=== PATIENT | female | born 2000 | race Caucasian/White ===

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

== ENCOUNTER 2022-04-16 11:42 | Emergency (ER) | payer OTHER, SELFPAY ==
[2022-04-16 11:47] VITALS: BP 119/78; PULSE 88; RESP 16; TEMP 36.5; O2SAT 96
[2022-04-16 12:06] LABS: Bilirubin Negative (Negative); Blood Trace-intact (Negative); Clarity Clear (Clear); Glucose Negative (Negative); Ketones Negative (Negative); Leukocyte Esterase Negative (Negative); Nitrite Negative (Negative); Specific Gravity >= 1.030 (1.005-1.025); Urobilinogen 0.2 EU/dL (Up TO 0.2)
[2022-04-16 12:11] LABS: Bacteria Few HPF (Negative); C & S Indicated? No/Sq. Contamination; Casts Negative LPF (Negative); Crystals Negative HPF (Negative); Epithelial Cells Many HPF (Negative); Mucus Moderate (Negative); WBC 0-2 HPF (0-5)
--- NOTE | 2022-04-16 12:11 | W.ED.GENAD ---
Discharge Plan Disposition Patient Disposition: HOME Condition: Stable Discharge Details Clinical Impression: Vaginal yeast infection, Bacterial vaginosis Primary Care Provider: Lucinda Parikh ED Provider: Pretty Preston Home Meds and New Rx's Prescriptions: New fluconazole [Diflucan] 150 mg tablet 150 mg PO ONCE Qty: 1 0RF Rx Instructions: as a single dose metronidazole 500 mg tablet 500 mg PO BID 7 Days Qty: 14 0RF Continued Nexplanon 68 mg Implant SUBDERMAL Discharge Instructions Instructions: Yeast Infection (ED) Additional Instructions: It is suspected that you have a yeast infection. You were given 1 dose of Diflucan which is the recommended treatment for a vaginal yeast infection. You were given a prescription for 1 additional dose of Diflucan to take in 1 week if your symptoms have not improved. Your vaginal pathogen screen is pending. You will be notified if it is confirmed you have a yeast infection or if it is positive for a bacterial vaginosis infection. You were given a prescription for metronidazole to take if you are notified that you are also positive for a bacterial vaginosis infection. Your chlamydia and gonorrhea test is pending and you will be notified of any positive results when available. Follow-up with [facility] for reevaluation in the next 1 to 2 weeks. Return immediately to the emergency department if you develop any worsening or new concerning symptoms. Referrals: [facility] [Provider Group] Discharge Data Discharge Date/Time-TO BE ENTERED AT DEPARTURE: 04/16/22 12:58 Discharge Physician: Pretty Preston Medical Decision Making 1200 -- 21-year-old female with history of ovarian cystectomy presents with vaginal itching and swelling with clear and white vaginal discharge for the past few days. She denies fever, vomiting or urinary symptoms. External exam revealed mild edema and erythema of labia majora. Internal vaginal exam noted white and clear discharge. Internal speculum exam noted cervix appears normal to inspection without friability, green or yellow vaginal discharge. No cervical motion tenderness or adnexal mass or tenderness. Vaginal pathogen screen and GC chlamydia RNA ordered. Patient states she would rather go home. We will treat for suspected vaginal candidiasis. She was given 1 dose of Diflucan here in addition to another dose if needed in 1 week if symptoms have not improved. She was also given a prescription for Flagyl if vaginal pathogen screen positive for bacterial vaginosis. Do not see indication for prophylactic treatment for chlamydia and gonorrhea as presentation does not appear consistent with urethritis or cervicitis or PID. She was advised to follow-up with women's wellness for reevaluation. Usual and customary return precautions given prior to discharge. 1500 -- Patient called after discharge and informed that vaginal pathogen screen positive for yeast infection and bacterial vaginosis. She is advised to fill the Flagyl prescription and take this as directed until finished. Medical Records Medical records reviewed: Yes I reviewed the patient's medical records. Lab Data Lab results reviewed: Yes I reviewed the patient's lab results. Labs: 04/16/22 12:35 Vaginal Vaginitis Screen - Final Positive -- Jenifer Positive -- Gardnerella Negative -- Trichomonas Laboratory Tests Range/Units 04/16/22 11:58 Urine Color (Yellow) Yellow Urine Clarity (Clear) Clear Urine pH (5-8) 6.0 Ur Specific [place] (1.005-1.025) >= 1.030 H Urine Protein (Negative) mg/dL Trace H Urine Ketones (Negative) mg/dL Negative Urine Blood (Negative) Trace-intact H Urine Nitrite (Negative) Negative Urine Bilirubin (Negative) Negative Urine Urobilinogen (Up TO 0.2) EU/dL 0.2 Ur Leukocyte Esterase (Negative) Negative Urine RBC (0-2) HPF 5-10 H Urine WBC (0-5) HPF 0-2 Ur Epithelial Cells (Negative) HPF Many Urine Crystals (Negative) HPF Negative Urine Bacteria (Negative) HPF Few Urine Casts (Negative) LPF Negative Urine Mucus (Negative) Moderate Ur Culture Indicated? No/Sq. Contamination Urine Glucose (Negative) mg/dL Negative HPI General Mode of arrival: ambulatory. Date/Time Provider Initiated Documentation: 04/16/22 11:53. Limitations to Documentation: no limitations. Information obtained by: patient. HPI Narrative: Pt is a 21yo F with a history of ovarian cystectomy presents with external vaginal itching, swelling and clear and white vaginal discharge for the past few days. Patient states she is sexually active and does not use protection but denies any known exposure to STDs. She denies any fever, nausea, vomiting, abdominal pain, green or yellow vaginal discharge, genital lesions or urinary symptoms. She does admit to recent change in her body wash. Related Data Home Medications Medication Instructions Recorded Confirmed etonogestrel 68 mg subdermal subdermal 04/16/22 implant (Nexplanon) fluconazole 150 mg tablet 150 mg PO ONCE #1 tab 04/16/22 (Diflucan) metronidazole 500 mg tablet 500 mg PO BID 7 days #14 tabs 04/16/22 Previous Rx's Medication Instructions Recorded fluconazole 150 mg tablet 150 mg PO ONCE #1 tab 04/16/22 (Diflucan) metronidazole 500 mg tablet 500 mg PO BID 7 days #14 tabs 04/16/22 Allergies Allergy/AdvReac Type Severity Reaction Status Date / Time No Known Allergies Allergy Unverified 04/16/22 11:51 General Stated Complaint: CREATIVE INTERN KAREN: 4 Review of Systems All systems reviewed & are unremarkable except as noted in HPI and below Constitutional Constitutional: Reports as per HPI, Denies chills and Denies fever(s) Eyes Eyes: Denies blurry vision ENT Ears, Nose, Mouth, and Throat: Denies dizziness, Denies sore throat and Denies throat swelling Cardiovascular Cardiovascular: Denies chest pain and Denies dyspnea Respiratory Respiratory: Denies cough and Denies dyspnea Gastrointestinal Gastrointestinal: Denies abdominal pain, Denies diarrhea and Denies vomiting Genitourinary Genitourinary: Denies hematuria, Denies dysuria, Reports vaginal odor and Reports vaginal pruritus Musculoskeletal Musculoskeletal: Denies back pain and Denies numbness Integumentary/Breasts Skin/Breast: Denies lesions and Denies rash Neurologic Neurologic: Denies dizziness, Denies localized weakness and Denies numbness Allergic/Immunologic Allergic/Immunologic: Denies throat swelling PFSH All Active Problems (Updated 04/18/22 @ 08:45 by Pretty Preston DO) Menstrual cramps (Acute) Strep pharyngitis (Acute) Diarrhea (Acute) Pelvic pain (Acute) Ovarian cyst (Acute) Vaginal yeast infection (Acute) Bacterial vaginosis (Acute) H/O ovarian cystectomy (Acute) 06/12/19. L hemorrhagic ovarian cyst. Laparoscopic ovarian cystectomy Hemorrhagic cyst of left ovary (Acute ~05/2019) 6.8cm. 06/12/19 L ovarian cystectomy. Pt will begin Xulane patch for ovarian suppression. 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 Sexually active: No (I asked pt this in presence of mother) Do you feel safe at home: Yes Do you feel safe in your relationship?: Yes Female Reproductive History Menstrual control method: none Exam Const General: cooperative, healthy appearing and no acute distress Orientation: alert, awake and oriented x3 HENMT Head: normal to inspection Mouth: oral mucosae normal Eyes General: appearance normal, both eyes and all related structures Neck Neck: normal visual inspection Resp Effort & Inspection: normal respiratory effort and able to speak in complete sentences Cardio Rate: regular rate Skin General skin exam: no rashes or lesions noted Neuro General: patient alert, patient awake and patient oriented x3 Motor: muscle tone normal throughout Extrem General: normal to inspection and full ROM Psych Appearance: grossly normal Affect: normal affect Course Vital Signs Vital signs: Vital Signs Temperature 97.7 F 04/16/22 11:47 Pulse 88 04/16/22 11:47 Respiratory Rate 16 04/16/22 11:47 Blood Pressure 119/78 04/16/22 11:47 Pulse Oximetry 96 04/16/22 11:47 Temperature 97.7 F 04/16/22 11:47 Temperature Source Temporal Artery Scan 04/16/22 11:47 Pulse 88 04/16/22 11:47 Respiratory Rate 16 04/16/22 11:47 Respiratory Effort 04/16/22 11:47 Blood Pressure 119/78 04/16/22 11:47 Blood Pressure Position Sitting 04/16/22 11:47 Pulse Oximetry 96 04/16/22 11:47 Oxygen Delivery Method Room Air 04/16/22 11:47 Oxygen Flow Rate 0 04/16/22 11:47 Pain Level 5 04/16/22 11:59 Lab/Test Results Lab/Test Results: Laboratory Tests Range/Units 04/16/22 11:58 Urine Color (Yellow) Yellow Urine Clarity (Clear) Clear Urine pH (5-8) 6.0 Ur Specific [place] (1.005-1.025) >= 1.030 H Urine Protein (Negative) mg/dL Trace H Urine Ketones (Negative) mg/dL Negative Urine Blood (Negative) Trace-intact H Urine Nitrite (Negative) Negative Urine Bilirubin (Negative) Negative Urine Urobilinogen (Up TO 0.2) EU/dL 0.2 Ur Leukocyte Esterase (Negative) Negative Urine Glucose (Negative) mg/dL Negative POC- Test(urine) Negative PAWSS Have you Been Recently Intoxicated or Drunk Within the Last 30 days?: Yes Have you Ever Experienced Previous Episodes of Alcohol Withdrawal?: No Have you ever Experienced Withdrawal Seizures?: No Have you ever Experienced Delirium Tremens(DT)s?: No Have you ever undergone Alcohol Rehabilitation Treatment (i.e, inpt ot outpatient treatment programs)?: No Have you ever Experienced Blackouts?: No Have you ever Combined Alcohol with other Downers within the last 90 days?: No Have you ever Combined Alcohol with any other Substance of Abuse during the last 90 days?: No Positive Blood Alcohol level on Presentation? [PCS.BAL]: No Evidence of Increased Autonomic Activity (i.e. HR>120, tremor, sweating, agitation, nausea)?: No Result: 1
[2022-04-16] MEDS: Fluconazole 150 MG TAB PO (12:59)
[2022-04-18 15:50] LABS: Chlamydia Result Negative (Negative); GC Result Negative (Negative)
== END 2022-04-16 12:58 | disposition home or self-care (01) ==
PROVIDERS: Emergency Provider Physician Assistant; PCP Obstetrics & Gynecology Gynecology
DX: B37.3 Candidiasis of vulva and vagina (principal); N76.0 Acute vaginitis
CPT/HCPCS: 81025; 87491; 87591; 99283; 81003; 81015; 87480; 87510; 87660

== ENCOUNTER 2023-05-09 19:49 | Outpatient (REF) | payer BC, SELFPAY ==
[2023-05-11 13:44] LABS: Chlamydia Result Negative (Negative); GC Result Negative (Negative)
== END 2023-05-09 19:50 | disposition home or self-care (01) ==
LOC: LBN 19:49
PROVIDERS: PCP Obstetrics & Gynecology Gynecology; Visit Provider Physician Assistant Medical
DX: N89.8 Other specified noninflammatory disorders of vagina (principal)
CPT/HCPCS: 87491; 87591; 87480; 87510; 87660

== ENCOUNTER 2023-08-01 16:50 | Emergency (ER) | payer BC, SELFPAY ==
[2023-08-01 16:53] VITALS: BP 152/76; PULSE 88; RESP 20; TEMP 37; O2SAT 99
--- NOTE | 2023-08-01 17:06 | W.ED.GENAD ---
Discharge Plan Disposition Patient Disposition: Home Discharge Details Clinical Impression: Pelvic pain Primary Care Provider: Lucinda Parikh ED Provider: Jeffry Sparks Home Meds and New Rx's Prescriptions: New naproxen [Naprosyn] 500 mg tablet 500 mg PO BID PRN (Reason: pain) Qty: 30 0RF No Action Nexplanon 68 mg Implant SUBDERMAL Patient Comments: patient no longer taking fluconazole [Diflucan] 150 mg tablet 150 mg PO ONCE Qty: 1 0RF Patient Comments: patient does not take Rx Instructions: as a single dose Discharge Instructions Additional Instructions: Take pain medication as prescribed and needed. Please follow-up with women's wellness for reevaluation of your symptoms. Please make sure you are getting routine wellness exams. Please use condoms with every sexual encounter. Medical Decision Making Emergent evaluation of abdominal pain. Patient has a benign exam and normal vital signs. Have a low suspicion for an acute intra-abdominal process or infectious etiology. Will check for urine infection. 1515: Patient is not Urinalysis unremarkable for infection. Will treat with Naprosyn. Advised close follow-up with women's health for routine evaluation. Return precautions advised. Discharged in good condition. HPI General Date/Time Provider Initiated Documentation: 08/01/23 16:58. Limitations to Documentation: no limitations. Information obtained by: patient. HPI Narrative: 23-year-old female with past medical history of ovarian cyst presents for evaluation of lower abdominal pain. Pain started this morning. It was severe, improved but has returned and has been progressively worsening. Pain is localized to the lower abdomen. No exacerbating relieving symptoms. Not associated with fever, she has been having mild nausea, no vomiting, no diarrhea. She denies any vaginal bleeding. She does report reports some discomfort after urination. She is not sure if she may be . She is sexually active with multiple partners, she does not use control and is not consistent with barrier contraceptives. Related Data Home Medications Medication Instructions Recorded Confirmed etonogestrel 68 mg subdermal subdermal 04/16/22 implant (Nexplanon) fluconazole 150 mg tablet 150 mg PO ONCE #1 tab 04/16/22 (Diflucan) naproxen 500 mg tablet (Naprosyn) 500 mg PO BID PRN pain #30 tabs 08/01/23 Previous Rx's Medication Instructions Recorded fluconazole 150 mg tablet 150 mg PO ONCE #1 tab 04/16/22 (Diflucan) naproxen 500 mg tablet (Naprosyn) 500 mg PO BID PRN pain #30 tabs 08/01/23 Allergies Allergy/AdvReac Type Severity Reaction Status Date / Time No Known Allergies Allergy Unverified 08/01/23 16:57 General Stated Complaint: Abd Prob KAREN: 3 PFSH All Active Problems (Updated 08/01/23 @ 18:07 by Jeffry Sparks MD) Menstrual cramps (Acute) Strep pharyngitis (Acute) Diarrhea (Acute) Pelvic pain (Acute) Ovarian cyst (Acute) H/O ovarian cystectomy (Acute) 06/12/19. L hemorrhagic ovarian cyst. Laparoscopic ovarian cystectomy Hemorrhagic cyst of left ovary (Acute ~05/2019) 6.8cm. 06/12/19 L ovarian cystectomy. Pt will begin Xulane patch for ovarian suppression. LLQ pain (Acute) Medical History (Updated 08/01/23 @ 18:07 by Jeffry Sparks MD) No significant past medical history Surgical History No significant past surgical history Social History Smoking/Tobacco Use Status: Never Smoking risk assessment performed?: Yes Alcohol Intake: never Drug use: Rarely Substance use type: marijuana Communication Needs: None Education Level: high school Details: entering [employer]lette yr at [employer]. 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 Sexually active: No (I asked pt this in presence of mother) Do you feel safe at home: Yes Do you feel safe in your relationship?: Yes Female Reproductive History Menstrual control method: none Exam Narrative Exam Narrative: Review of Systems: All systems reviewed & are unremarkable except as noted in HPI and below Exam: Const: Well-nourished, Well-developed, appearing stated age HEENT: NACT / Eyes: PERRL, no conjunctival injection, and symmetrical lids / EARS Atraumatic external nose and ears / MOUTH Moist MM / NECK: Symmetric, trachea midline, No thyromegaly / THROAT oropharynx clear CVS: RRR, No murmurs or gallops. Peripheral pulses 2+ and equal in all extremities. Brisk capillary refill in all extremities. RESP: Unlabored respiratory effort, Clear to auscultation bilaterally. No wheezes rales or rhonchi GI: Soft, Nontender/Nondistended, No hepatosplenomegaly. No guarding or rebound. MSK: Extremities w/o deformity or TTP, No cyanosis or clubbing, full range of motion Skin: Warm, Dry. No rashes or lesions. 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 Sensation grossly intact, no focal neurologic deficits. Psych: (AAO) x3. Appropriate mood and affect Course Vital Signs Vital signs: Vital Signs Temperature 37.0 C 08/01/23 16:53 Pulse 88 08/01/23 16:53 Respiratory Rate 20 08/01/23 16:53 Blood Pressure 152/76 H 08/01/23 16:53 Pulse Oximetry 99 08/01/23 16:53 Temperature 37.0 C 08/01/23 16:53 Pulse 88 08/01/23 16:53 Respiratory Rate 20 08/01/23 16:53 Respiratory Effort Normal 08/01/23 16:59 Blood Pressure 152/76 H 08/01/23 16:53 Blood Pressure Position Sitting 08/01/23 16:53 Pulse Oximetry 99 08/01/23 16:53 Oxygen Delivery Method Room Air 08/01/23 16:53 Oxygen Flow Rate 0 08/01/23 16:53 Pain Level 9 08/01/23 16:53 PAWSS Have you Been Recently Intoxicated or Drunk Within the Last 30 days?: No Have you Ever Experienced Previous Episodes of Alcohol Withdrawal?: No Have you ever Experienced Withdrawal Seizures?: No Have you ever Experienced Delirium Tremens(DT)s?: No Have you ever undergone Alcohol Rehabilitation Treatment (i.e, inpt ot outpatient treatment programs)?: No Have you ever Experienced Blackouts?: No Have you ever Combined Alcohol with other Downers within the last 90 days?: No Have you ever Combined Alcohol with any other Substance of Abuse during the last 90 days?: No Positive Blood Alcohol level on Presentation? [PCS.BAL]: No Evidence of Increased Autonomic Activity (i.e. HR>120, tremor, sweating, agitation, nausea)?: No Result: 0
[2023-08-01 17:23] LABS: Bilirubin Negative (Negative); Blood Trace-intact (Negative); Clarity Clear (Clear); Glucose Negative (Negative); Ketones Negative (Negative); Leukocyte Esterase Negative (Negative); Nitrite Negative (Negative); Specific Gravity 1.025 (1.005-1.025); Urobilinogen 0.2 mg/dL (Up to 0.2)
[2023-08-01 17:42] LABS: Bacteria Few HPF (Negative); C & S Indicated? Yes; Crystals Negative HPF (Negative); Epithelial Cells Rare HPF (Negative); Mucus Negative (Negative); RBC 0-2 HPF (0-2); WBC 0-2 HPF (0-5)
[2023-08-01 18:17] VITALS: BP 119/74; PULSE 71; RESP 15; O2SAT 98
== END 2023-08-01 18:18 | disposition home or self-care (01) ==
PROVIDERS: Emergency Provider Emergency Medicine; PCP Obstetrics & Gynecology Gynecology
DX: R10.2 Pelvic and perineal pain (principal)
CPT/HCPCS: 99283; 81003; 81015; 87086; 99284

== ENCOUNTER 2023-10-15 08:44 | Emergency (ER) | payer BC, SELFPAY ==
[2023-10-15 08:46] VITALS: BP 133/84; PULSE 78; RESP 16; TEMP 36.4; O2SAT 99
[2023-10-15 10:27] LABS: Bilirubin Negative (Negative); Blood Trace-intact (Negative); Clarity Clear (Clear); Glucose Negative (Negative); Ketones Negative (Negative); Leukocyte Esterase Negative (Negative); Nitrite Negative (Negative); Specific Gravity 1.025 (1.005-1.025); Urobilinogen 0.2 mg/dL (Up to 0.2); pH 6.5 (5-8)
[2023-10-15 10:37] LABS: Bacteria Negative HPF (Negative); C & S Indicated? No; Casts Negative LPF (Negative); Crystals Negative HPF (Negative); Epithelial Cells Many HPF (Negative); Mucus Negative (Negative)
[2023-10-15 10:51] LABS: Abs Immature Grans 0.02 10^3/uL (0.0-0.06); Absolute Basophil Count 0.02 10^3/uL (0.0-0.2); Absolute Eosinophil Count 0.11 10^3/uL (0.0-0.7); Absolute Lymphocyte Count 2.24 10^3/uL (1.2-3.4); Absolute Monocyte Count 0.61 10^3/uL (0.1-0.8); Absolute Neutrophil Count 6.52 10^3/uL (1.2-6.7); Basophils % 0.2; Eosinophils % 1.2; HCT 40.6 % (36.0-46.0); HGB 14.2 g/dL (11.2-15.7); Immature Grans % 0.2; Lymphocytes % 23.5; MCH 30.7 pg (27.0-33.0); MCV 88 fL (80-95); MPV 9.3 fL (8.0-11.0); Monocytes % 6.4; Neutrophils % 68.5; Platelet Count 286 10^3/uL (130-400); RBC 4.62 10^6/uL (3.93-5.22); RDW-SD 38.5 fL; WBC 9.52 10^3/uL (4.4-10.8)
[2023-10-15 11:05] LABS: ALT 20 U/L (14-59); AST 13 U/L (15-37); Albumin 4.2 g/dL (3.4-5.0); Alkaline Phosphatase 50 U/L (46-116); Anion Gap 8.5 mmol/L (3-11); BUN 11 mg/dL (7-18); Bilirubin, Total 0.5 mg/dL (0.2-1.0); CO2 28.5 mmol/L (21.0-32.0); CREATININE 0.8 mg/dL (0.55-1.02); Calcium 9.4 mg/dL (8.5-10.1); Chloride 102 mmol/L (98-107); Estimated GFR 107.44 (mL/min/1.73m2); Glucose 100 mg/dL (74-106); Lipase 20 U/L (16-77); Magnesium 1.7 mg/dL (1.8-2.4); Potassium 4.2 mmol/L (3.5-5.1); Sodium 139 mmol/L (136-145); Total Protein 8.1 g/dL (6.4-8.2)
[2023-10-15] MEDS: Normal Saline 1,000 ML 1000 ML IV (11:10)
[2023-10-15 11:40] VITALS: BP 126/62; PULSE 78; RESP 16; O2SAT 99
--- NOTE | 2023-10-15 11:40 | ED.GENADUL_ITS ---
Discharge Plan Disposition Patient Disposition: Home Discharge Details Clinical Impression: Pelvic pain Primary Care Provider: Lucinda Parikh ED Provider: Kadeem Hayes Home Meds and New Rx's Prescriptions: Continued naproxen [Naprosyn] 500 mg tablet 500 mg PO BID PRN (Reason: pain) Qty: 30 0RF Discharge Instructions Instructions: Pelvic Pain (ED) Additional Instructions: If you have any new or significant worsening of symptoms or change in your condition return immediately to the emergency department for reassessment. Otherwise you may continue to take [id number] ibuprofen or your prescribed naproxen. Stay well-hydrated. Please follow-up with Dr. Parikh/[facility] if not improving. Referrals: Lucinda Parikh MD [Primary Care Provider] - (As needed for reassessment if not improving) Medical Decision Making Patient presenting to the emergency department for chief complaint of lower abdominal pain. Patient states that on Sunday she was generally not feeling well then yesterday morning she started having some lower pelvic discomfort. 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 Patient has significant past medical history of ovarian cyst and lower abdominal pain. She states that her last menstrual period was last week but has had a slight amount of spotting. Patient reports significant abdominal cramping at 3 AM this morning but actually by the time they have gotten here pain has been improving. Patient deferred vaginal exam but abdominal exam does show some very mild suprapubic tenderness to deep palpation only but no guarding, no rigidity, no CVA tenderness, exam otherwise noncontributory. Plan on checking labs including test will give fluids pending results but given symptoms not resolving we will hold off on any further medications Review of labs show a completely normal CBC, CMP only shows slightly low AST and magnesium otherwise all other findings within normal limits, normal lipase, urine shows trace intact blood but is negative for any signs of infection and patient is not . Reassessed patient and she states continued furthering improvement of symptoms. Shared decision-making was utilized to discuss with both patient and mother advanced imaging versus watchful waiting. Given patient's known history of ovarian cysts, resolving symptoms, and very reassuring labs we decided after discussion to hold off on any advanced imaging and for patient to continue use of oxwn-sll-wazeeba medications as needed for return of discomfort and to come back to the emergency department if her condition change or worsen. Patient recommended to follow-up with [facility] that she has seen for similar complaints in the past. After discussion of diagnosis and plan of care patient has no further needs, questions, or concerns and states clear understanding to return to the emergency department for any worsening symptoms. This documentation was generated using [employer] dictation system, please disregard any oddities of phrase or misspellings. Lab Data Lab results reviewed: Yes I reviewed the patient's lab results. HPI General Mode of arrival: ambulatory . Date/Time Provider Initiated Documentation: 10/15/23 10:05 . Limitations to Documentation: no limitations . Information obtained by: patient and RN notes reviewed . History of Present Illness 23 year old F presents to the emergency department with the chief complaint of Pelvic discomfort, described as moderate and similar to prior episodes, and is localized to the abdomen. Patient started experiencing this day(s) (1) and it has been intermittent and now resolved. No relieving factors improve symptom(s), Patient did receive the following treatments prior to arrival, none Related Data Home Medications Medication Instructions Recorded Confirmed naproxen 500 mg tablet (Naprosyn) 500 mg PO BID PRN pain #30 tabs 08/01/2310/15 Previous Rx's Medication Instructions Recorded naproxen 500 mg tablet (Naprosyn) 500 mg PO BID PRN pain #30 tabs 08/01/23 Allergies Allergy/AdvReac Type Severity Reaction Status Date / Time No Known Allergies Allergy Unverified 08/01/23 16:57 General Stated Complaint: Abd Prob KAREN: 4 Review of Systems Constitutional Constitutional: Denies chills, Denies fever(s) and Reports poor appetite Cardiovascular Cardiovascular: Denies chest pain and Denies dyspnea Respiratory Respiratory: Denies cough and Denies dyspnea Gastrointestinal Gastrointestinal: Reports as per HPI, Reports abdominal pain, Denies melena, Denies change in bowel habits, Denies constipation, Denies diarrhea, Reports loose stools, Denies nausea and Denies vomiting Genitourinary Genitourinary: Reports metrorrhagia, Denies hematuria, Reports pelvic pain, Denies urinary incontinence, Denies urinary hesitancy and Denies urinary urgency Integumentary/Breasts Skin/Breast: Denies rash PFSH All Active Problems Ovarian cyst (Acute) Pelvic pain (Acute) Diarrhea (Acute) Strep pharyngitis (Acute) Menstrual cramps (Acute) H/O ovarian cystectomy (Acute) 06/12/19. L hemorrhagic ovarian cyst. Laparoscopic ovarian cystectomy Hemorrhagic cyst of left ovary (Acute ~05/2019) 6.8cm. 06/12/19 L ovarian cystectomy. Pt will begin Xulane patch for ovarian suppression. 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 current occupation: works at [employer] Sexually active: No (I asked pt this in presence of mother) Do you feel safe at home: Yes Do you feel safe in your relationship?: Yes Female Reproductive History Menstrual control method: none Exam Const General: cooperative Orientation: alert, awake and oriented x3 Resp Effort & Inspection: normal respiratory effort and able to speak in complete sentences Auscultation: clear to auscultation bilaterally Cardio Rate: regular rate Rhythm: regular rhythm Heart Sounds: S1 normal and S2 normal GI Palpation: soft, no hepatosplenomegaly, not firm, no guarding, no masses, no pulsatile masses, not rigid, no splenomegaly and tender suprapubicly; not at McBurney's point, Yancey's sign negative, psoas sign negative and Rovsing's sign negative Auscultation: normal bowel sounds General: deferred Back/Spine/Pelvis Back: no CVA tenderness Neuro General: patient alert, patient awake, patient oriented x3, gait normal and moves all extremities Course Vital Signs Vital signs: Vital Signs Temperature 36.4 C L 10/15/23 08:46 Pulse 78 10/15/23 08:46 Respiratory Rate 16 10/15/23 08:46 Blood Pressure 133/84 10/15/23 08:46 Pulse Oximetry 99 10/15/23 08:46 Temperature 36.4 C L 10/15/23 08:46 Temperature Source Tympanic 10/15/23 08:46 Pulse 78 10/15/23 08:46 Respiratory Rate 16 10/15/23 08:46 Respiratory Effort Normal, Non-Labored 10/15/23 08:54 Blood Pressure 133/84 10/15/23 08:46 Pulse Oximetry 99 10/15/23 08:46 Oxygen Delivery Method Room Air 10/15/23 08:46 Oxygen Flow Rate 0 10/15/23 08:46 Lab/Test Results Lab/Test Results: Laboratory Tests Range/Units 10/15/23 10/15/23 10:17 10:43 WBC (4.4-10.8) 10^3/uL 9.52 RBC (3.93-5.22) 10^6/uL 4.62 Hgb (11.2-15.7) g/dL 14.2 Hct (36.0-46.0) % 40.6 MCV (80-95) fL 88 MCH (27.0-33.0) pg 30.7 MCHC (32.0-36.0) % 35.0 RDW (11.7-14.6) % 12.0 Plt Count (130-400) 10^3/uL 286 MPV (8.0-11.0) fL 9.3 Immature Gran % 0.2 Neutrophils % 68.5 Lymphocytes % 23.5 Monocytes % 6.4 Eosinophils % 1.2 Basophils % 0.2 Nucleated RBC % (0.0-0.3) % 0.0 Absolute Neutrophils (1.2-6.7) 10^3/uL 6.52 Absolute Lymphocytes (1.2-3.4) 10^3/uL 2.24 Absolute Monocytes (0.1-0.8) 10^3/uL 0.61 Absolute Eosinophils (0.0-0.7) 10^3/uL 0.11 Absolute Basophils (0.0-0.2) 10^3/uL 0.02 Sodium (136-145) mmol/L 139 Potassium (3.5-5.1) mmol/L 4.2 Chloride (98-107) mmol/L 102 Carbon Dioxide (21.0-32.0) mmol/L 28.5 Anion Gap (3-11) mmol/L 8.5 BUN (7-18) mg/dL 11 Creatinine (0.55-1.02) mg/dL 0.8 Est GFR (CKD-EPI 2020) (mL/min/1.73m2) 107.44 Glucose (74-106) mg/dL 100 Calcium (8.5-10.1) mg/dL 9.4 Magnesium (1.8-2.4) mg/dL 1.7 L Total Bilirubin (0.2-1.0) mg/dL 0.5 AST (15-37) U/L 13 L ALT (14-59) U/L 20 Alkaline Phosphatase (46-116) U/L 50 Total Protein (6.4-8.2) g/dL 8.1 Albumin (3.4-5.0) g/dL 4.2 Lipase (16-77) U/L 20 Urine Color (Yellow) Yellow Urine Clarity (Clear) Clear Urine pH (5-8) 6.5 Ur Specific [place] (1.005-1.025) 1.025 Urine Protein (Negative) mg/dL Negative Urine Ketones (Negative) mg/dL Negative Urine Blood (Negative) Trace-intact H Urine Nitrite (Negative) Negative Urine Bilirubin (Negative) Negative Urine Urobilinogen (Up to 0.2) mg/dL 0.2 Ur Leukocyte Esterase (Negative) Negative Urine RBC (0-2) HPF 3-5 H Urine WBC (0-5) HPF 3-5 Ur Epithelial Cells (Negative) HPF Many Urine Crystals (Negative) HPF Negative Urine Bacteria (Negative) HPF Negative Urine Casts (Negative) LPF Negative Urine Mucus (Negative) Negative Ur Culture Indicated? No Urine Glucose (Negative) mg/dL Negative POC- Test(urine) Negative
[2023-10-15] MEDS: Magnesium Oxide 400 MG TAB PO (11:54)
== END 2023-10-15 11:55 | disposition home or self-care (01) ==
PROVIDERS: Emergency Provider Nurse Practitioner Family; PCP Obstetrics & Gynecology Gynecology
DX: R10.2 Pelvic and perineal pain (principal)
CPT/HCPCS: 80053; 83690; 96360; 99283; 81003; 81015; 83735; 85025; 99282

== ENCOUNTER → 2023-12-24 14:57 | Outpatient (CLI) | payer BC, SELFPAY ==
--- NOTE | 2023-12-24 14:35 | DI.RAD_ITS ---
Exam(s) XR CHEST 2V PA LATERAL EXAM: XR CHEST 2V PA LATERAL CLINICAL HISTORY: COUGH, R05.9 TECHNIQUE: 2D digital imaging was performed. Two views. COMPARISON: No exams were available for comparison FINDINGS: HEART: Normal size. Aorta: Not dilated. PULMONARY VASCULATURE: Normal. LUNGS: Clear. PLEURAL SPACE: No pleural effusion or pneumothorax. BONE:Unremarkable for age. Soft tissues: Unremarkable. IMPRESSION: No acute abnormality. DATA REPOSITORY: RADIATION DOSE DELIVERED:
== END ==
PROVIDERS: PCP Obstetrics & Gynecology Gynecology; Visit Provider Nurse Practitioner Family
DX: R05.8 Other specified cough (principal)
CPT/HCPCS: 71046

== ENCOUNTER 2024-01-08 18:11 | Emergency (ER) | payer BC, SELFPAY ==
[2024-01-08 18:15] VITALS: BP 202/100; PULSE 98; RESP 20; TEMP 36.7; O2SAT 98
[2024-01-08 18:22] VITALS: BP 202/100; PULSE 98; RESP 20; TEMP 36.7; O2SAT 98
--- NOTE | 2024-01-08 18:25 | ED.GENADUL_ITS ---
Discharge Plan Disposition Patient Disposition: Home Condition: Stable Discharge Details Clinical Impression: Cough, Bronchitis Primary Care Provider: Lucinda Parikh ED Provider: Nic Sampson Home Meds and New Rx's Prescriptions: New doxycycline hyclate 100 mg tablet 100 mg PO BID Qty: 14 0RF Continued naproxen [Naprosyn] 500 mg tablet 500 mg PO BID PRN (Reason: pain) Qty: 30 0RF albuterol sulfate 90 mcg/actuation HFA aerosol inhaler 2 puff INHALATION Q4H PRN Patient Comments: INHALE 2 PUFFS BY MOUTH EVERY 4 HOURS NEEDED HPI General Mode of arrival: ambulatory . Date/Time Provider Initiated Documentation: 01/08/24 18:13 . Limitations to Documentation: no limitations . Information obtained by: patient . History of Present Illness 23 year old F presents to the emergency department with the chief complaint of Cough, described as moderate, Patient started experiencing this month(s) (1) and it has been intermittent. No relieving factors improve symptom(s), No exacerbating factors reported . Patient notes denies chest pain and fever/chills. Related Data Home Medications Medication Instructions Recorded Confirmed naproxen 500 mg tablet (Naprosyn) 500 mg PO BID PRN pain #30 tabs 08/01/23 01/08/24 albuterol sulfate 90 mcg/actuation 2 puff inhalation Q4H PRN 01/08/24 01/08/24 aerosol inhaler doxycycline hyclate 100 mg tablet 100 mg PO BID #14 tabs 01/08/24 Previous Rx's Medication Instructions Recorded naproxen 500 mg tablet (Naprosyn) 500 mg PO BID PRN pain #30 tabs 08/01/23 doxycycline hyclate 100 mg tablet 100 mg PO BID #14 tabs 01/08/24 Allergies Allergy/AdvReac Type Severity Reaction Status Date / Time No Known Allergies Allergy Unverified 01/08/24 18:14 General Stated Complaint: RespSymp KAREN: 4 Review of Systems All systems reviewed & are unremarkable except as noted in HPI and below Constitutional Constitutional: Denies chills, Denies fever(s) and Denies weakness Cardiovascular Cardiovascular: Denies chest pain Respiratory Respiratory: Reports cough Gastrointestinal Gastrointestinal: Denies abdominal pain, Denies nausea and Denies vomiting Musculoskeletal Musculoskeletal: Denies joint swelling Neurologic Neurologic: Denies weakness Psychiatric Psychiatric: Denies depression Exam Const General: no acute distress Orientation: alert HENMT Head: normal to inspection Ears: external ears normal and TM's normal bilaterally General nose exam: external nose normal Mouth: moist mucous membranes Eyes General: appearance normal, both eyes and all related structures Neck Neck: normal visual inspection Resp Effort & Inspection: normal respiratory effort and able to speak in complete sentences Auscultation: clear to auscultation bilaterally Cardio Jugular venous pressure: no JVD Rate: regular rate Heart Sounds: no murmurs Skin General skin exam: no rashes or lesions noted Neuro General: patient alert and patient oriented x3 Extrem General: normal to inspection Psych Mental Status: mental status grossly normal Course Vital Signs Vital signs: Vital Signs Temperature 36.7 C 01/08/24 18:15 Pulse 98 H 01/08/24 18:15 Respiratory Rate 20 01/08/24 18:15 Blood Pressure 202/100 H 01/08/24 18:15 Pulse Oximetry 98 01/08/24 18:15 Temperature 36.7 C 01/08/24 18:22 Temperature Source Tympanic 01/08/24 18:22 Pulse 98 H 01/08/24 18:22 Respiratory Rate 20 01/08/24 18:22 Respiratory Effort Normal, Non-Labored, Short of Breath 01/08/24 18:22 Blood Pressure 202/100 H 01/08/24 18:22 Pulse Oximetry 98 01/08/24 18:22 Oxygen Delivery Method Room Air 01/08/24 18:22 Oxygen Flow Rate 0 01/08/24 18:22 Pain Level 6 01/08/24 18:22 Medical Decision Making 23-year-old female who denies any significant chronic medical history, comes in with 1 month of intermittent dry cough. States is seen her primary care provider was put on an albuterol inhaler and a short course of steroids which did not significantly improve her cough. She had a chest x-ray done on 3 which did not show any acute findings was read as negative. She denies any fevers, no chest pain, she says when she has coughing fits she feels short of breath but otherwise feels well. She is alert and oriented x 4 on arrival speaking in full sentences in no distress. She denies any significant smoking history or IV drug use. She has clear lungs, no murmurs, no leg swelling or calf tenderness, no JVD.. Given her well appearance do not feel any lab or imaging testing indicated, she is Wells low and PERC negative for PE, and given lack of fevers and well appearance do not feel repeat chest x-ray indicated. Given her length of time of symptoms feel is reasonable to start her on doxycycline to cover for bronchitis. She is stable for discharge, advised to follow-up with her primary care provider and return precautions given Differential Diagnosis Differential Diagnosis: Bronchitis, allergies, asthma Quality:SDOH Health Related Social Needs: No Data to Display PFSH All Active Problems (Updated 01/08/24 @ 18:26 by Nic Sampson MD) Bronchitis (Acute) Cough (Acute) Ovarian cyst (Acute) Pelvic pain (Acute) Diarrhea (Acute) Strep pharyngitis (Acute) Menstrual cramps (Acute) H/O ovarian cystectomy (Acute) 06/12/19. L hemorrhagic ovarian cyst. Laparoscopic ovarian cystectomy Hemorrhagic cyst of left ovary (Acute ~05/2019) 6.8cm. 06/12/19 L ovarian cystectomy. Pt will begin Xulane patch for ovarian suppression. 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 Sexually active: No (I asked pt this in presence of mother) Do you feel safe at home: Yes Do you feel safe in your relationship?: Yes Female Reproductive History Menstrual control method: none PAWSS Have you Been Recently Intoxicated or Drunk Within the Last 30 days?: Yes Have you Ever Experienced Previous Episodes of Alcohol Withdrawal?: No Have you ever Experienced Withdrawal Seizures?: No Have you ever Experienced Delirium Tremens(DT)s?: No Have you ever undergone Alcohol Rehabilitation Treatment (i.e, inpt ot outpatient treatment programs)?: No Have you ever Experienced Blackouts?: No Have you ever Combined Alcohol with other Downers within the last 90 days?: No Have you ever Combined Alcohol with any other Substance of Abuse during the last 90 days?: No Positive Blood Alcohol level on Presentation? [PCS.BAL]: No Evidence of Increased Autonomic Activity (i.e. HR>120, tremor, sweating, agitation, nausea)?: No Result: 1
[2024-01-08 18:28] VITALS: BP 140/82
[2024-01-08] MEDS: Doxycycline Hyclate 100 MG CAP PO (18:33)
[2024-01-08 18:34] VITALS: BP 140/82; PULSE 98; RESP 20; TEMP 36.7; O2SAT 98
== END 2024-01-08 18:36 | disposition home or self-care (01) ==
LOC: ER 18:34
PROVIDERS: Emergency Provider Emergency Medicine; PCP Obstetrics & Gynecology Gynecology
DX: J40 Bronchitis, not specified as acute or chronic (principal)
CPT/HCPCS: 99283

== ENCOUNTER 2024-02-06 14:28 | Outpatient (REF) | payer BC, SELFPAY ==
[2024-02-07 13:43] LABS: Chlamydia Result Negative (Negative); GC Result Negative (Negative)
== END 2024-02-06 14:29 | disposition home or self-care (01) ==
LOC: LBN 14:28
PROVIDERS: PCP Obstetrics & Gynecology Gynecology; Visit Provider Obstetrics & Gynecology
DX: R10.2 Pelvic and perineal pain (principal)
CPT/HCPCS: 87491; 87591

== ENCOUNTER 2024-02-09 16:40 | Emergency (ER) | payer BC, SELFPAY ==
[2024-02-09 16:43] VITALS: BP 151/72; PULSE 85; RESP 18; TEMP 36.6; O2SAT 98
--- NOTE | 2024-02-09 17:03 | W.ED.GENAD ---
Discharge Plan Disposition Patient Disposition: Home Discharge Details Clinical Impression: Otitis media, URI (upper respiratory infection) Primary Care Provider: Lucinda Parikh ED Provider: Kadeem Hayes Home Meds and New Rx's Prescriptions: New amoxicillin 875 mg tablet 875 mg PO BID Qty: 14 0RF Continued drospirenone-ethinyl estradiol 3-0.02 mg tablet 1 tab PO DAILY Qty: 84 4RF Discharge Instructions Instructions: Ear Infection (ED), Upper Respiratory Infection (ED) Additional Instructions: At this time I feel that you may continue ivxf-jut-[id number] medication to help with symptoms. It is recommended that you take 600 mg of ibuprofen/Motrin every 6 hours as needed for discomfort and ear pressure. If not improving in the next 24 hours please start the antibiotic and take the entire course of medication. Feel free to return to the emergency department for any new or significant worsening of symptoms otherwise follow-up with your primary care provider if not improving in the next week. Referrals: Primary Care Provider [Outside] - 1 week (If not improving) Discharge Data Discharge Date/Time-TO BE ENTERED AT DEPARTURE: 02/09/24 17:43 HPI General Mode of arrival: ambulatory. Date/Time Provider Initiated Documentation: 02/09/24 16:48. Limitations to Documentation: no limitations. Information obtained by: patient and RN notes reviewed. History of Present Illness 23 year old F presents to the emergency department with the chief complaint of Ear pain, described as mild and moderate, Quality is described as aching, Patient started experiencing this month(s) (1) and it has been intermittent. No relieving factors improve symptom(s), Other factors that worsen symptoms (Another viral cold) . Patient did receive the following treatments prior to arrival, other (DayQuil, acetaminophen) Related Data Home Medications Medication Instructions Recorded Confirmed drospirenone 3 mg-ethinyl 1 tab PO DAILY #84 tabs 02/06/24 02/09/24 estradiol 0.02 mg tablet amoxicillin 875 mg tablet 875 mg PO BID #14 tabs 02/09/24 Previous Rx's Medication Instructions Recorded drospirenone 3 mg-ethinyl 1 tab PO DAILY #84 tabs 02/06/24 estradiol 0.02 mg tablet amoxicillin 875 mg tablet 875 mg PO BID #14 tabs 02/09/24 Allergies Allergy/AdvReac Type Severity Reaction Status Date / Time No Known Allergies Allergy Unverified 02/09/24 16:45 General Stated Complaint: EarProblem KAREN: 4 Review of Systems Constitutional Constitutional: Denies chills, Denies fever(s) and Denies headache(s) ENT Ears, Nose, Mouth, and Throat: Denies headache(s), Denies neck pain and Denies throat swelling Cardiovascular Cardiovascular: Denies chest pain and Denies dyspnea Respiratory Respiratory: Reports cough and Denies dyspnea Musculoskeletal Musculoskeletal: Denies neck pain Integumentary/Breasts Skin/Breast: Denies rash Neurologic Neurologic: Denies headache(s) Allergic/Immunologic Allergic/Immunologic: Denies throat swelling Exam Const General: cooperative, comfortable and no acute distress Orientation: alert and awake [facility] Head: normal to inspection, normocephalic and atraumatic Ears: hearing grossly normal bilaterally and TM abnormal wth effusion serous bilaterally, erythematous bilaterally and retracted bilaterally General nose exam: external nose normal Face and sinus: no erythema Mouth: oral mucosae normal, no drooling, no muffled voice and no trismus Throat: posterior oropharynx normal Neck Neck: normal visual inspection, full ROM, no lymphadenopathy, no meningeal signs, trachea midline and supple Resp Effort & Inspection: normal respiratory effort, able to speak in complete sentences and cough Quality of cough: dry Auscultation: clear to auscultation bilaterally Cardio Rate: regular rate Rhythm: regular rhythm Heart Sounds: S1 normal, S2 normal, normal S1 and S2, no click, no gallops, no murmurs and no rubs Skin General skin exam: no rashes or lesions noted and dry skin (warm) Neuro General: patient alert, patient awake, patient oriented x3, gait normal and moves all extremities Cognition: normal cognition Speech: speech normal Course Vital Signs Vital signs: Vital Signs Temperature 36.6 C 02/09/24 16:43 Pulse 85 02/09/24 16:43 Respiratory Rate 18 02/09/24 16:43 Blood Pressure 151/72 H 02/09/24 16:43 Pulse Oximetry 98 02/09/24 16:43 Temperature 36.6 C 02/09/24 16:43 Temperature Source Skin 02/09/24 16:43 Pulse 85 02/09/24 16:43 Respiratory Rate 18 02/09/24 16:43 Respiratory Effort Normal 02/09/24 16:45 Blood Pressure 151/72 H 02/09/24 16:43 Blood Pressure Position Sitting 02/09/24 16:43 Pulse Oximetry 98 02/09/24 16:43 Oxygen Delivery Method Room Air 02/09/24 16:43 Oxygen Flow Rate 0 02/09/24 16:43 Medical Decision Making Patient presenting to the emergency department for chief complaint of ear pain. She reports that she had viral cold approximately 1 month ago was placed on some antibiotics and slowly started improved. Over the last couple days though she has developed new cold symptoms with nasal congestion cough and ear pain. She does report that her ear pain has been going on the entire time but seem to have gotten slightly worse with this new cold. Patient denies fever chills drainage of fluid from the ears, hearing loss. Physical exam does show findings consistent with otalgia and possible early otitis media otherwise consistent with URI. Given that patient has had ear pain only for 1 day will recommend NSAIDs for the next 24 hours and monitoring of symptoms otherwise a pocket prescription for amoxicillin was given to cover for possible early bacterial otitis media. Conservative management of URI was otherwise discussed. After discussion of diagnosis and plan of care patient has no further needs, questions, or concerns and states clear understanding to return to the emergency department for any worsening symptoms. This documentation was generated using [employer] dictation system, please disregard any oddities of phrase or misspellings. Quality:SDOH Health Related Social Needs: No Data to Display PFSH All Active Problems URI (upper respiratory infection) (Acute) Otitis media (Acute) Medical History Strep pharyngitis Surgical History H/O ovarian cystectomy 06/12/19. L hemorrhagic ovarian cyst. 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
[2024-02-09 17:38] VITALS: BP 151/72; PULSE 85; RESP 18; TEMP 36.6; O2SAT 98
== END 2024-02-09 17:43 | disposition home or self-care (01) ==
PROVIDERS: Emergency Provider Nurse Practitioner Family; PCP Obstetrics & Gynecology Gynecology
DX: J06.9 Acute upper respiratory infection, unspecified (principal); H66.93 Otitis media, unspecified, bilateral
CPT/HCPCS: 99283

== ENCOUNTER 2024-04-09 08:25 | Outpatient (REF) | payer BC, SELFPAY ==
--- NOTE | 2024-04-09 08:15 | PAPFT_PTH ---
PATIENT: Roz Valencia LOC: [facility] U#:[id number] AGE/SX: 23/F ROOM: RE04/09/[address]: Monisha Sampson NP : 2000 BED: DIS: 04/09/2024 SPEC #: [id number] RECD: 04/09/24 13:42 STATUS: SAMIRA REFlex #: [id number] MELVIN: 04/09/24 08:[address]: Monisha Sampson NP [facility] Cytology RECD BY: Mechelle Jurado ENTERED: 04/09/24 13:42 SP TYPE: PAPFT OTHR DR: Lucinda Parikh Tissues: 1 - CX/ENDOCX FOR PAP SMEARS Procedures: PAP THIN PREP/[facility] Screening Comments: [id number]
== END 2024-04-09 08:26 | disposition home or self-care (01) ==
LOC: LBN 08:25
PROVIDERS: PCP Obstetrics & Gynecology Gynecology; Visit Provider Nurse Practitioner Women's Health
DX: Z12.4 Encounter for screening for malignant neoplasm of cervix (principal); N76.0 Acute vaginitis
CPT/HCPCS: 88142

== ENCOUNTER 2024-11-24 15:35 | Emergency (ER) | payer BC, SELFPAY ==
[2024-11-24] VITALS (7 sets, daily range): BP systolic 138; BP diastolic 82; PULSE 69–100; RESP 16; TEMP 36.7–37.2; O2SAT 94–99
--- NOTE | 2024-11-24 15:30 | RT.EKG_ITS ---
APPROVED REPORT Exam: Resting ECG Reason for Exam: Chest pain, dizziness Patient Location: E HR:93 bpm ECG Measurements Heart Rate 93 AXIS NJ 146 P 57 QRSd 80 QRS 65 QT 323 T 18 QTc 402 Conclusion Sinus rhythm...normal P axis, V-rate 60- 99 No STEMI
--- NOTE | 2024-11-24 15:42 | ED.GENADUL_ITS ---
Discharge Plan Disposition Patient Disposition: Home Discharge Details Clinical Impression: Viral illness Primary Care Provider: Kristen Carlson ED Provider: Keira Vyas Home Meds and New Rx's Prescriptions: No Action drospirenone-ethinyl estradiol 3-0.02 mg tablet 1 tab PO DAILY Qty: 84 4RF sertraline 50 mg tablet 50 mg PO DAILY Patient Comments: TAKE ONE TABLET BY MOUTH EVERY DAY vitamin B complex-folic acid 0.4 mg tablet 1 tab PO DAILY Patient Comments: TAKE ONE TABLET BY MOUTH EVERY MORNING magnesium gluconate [Mag-G] 27 mg magnesium (500 mg) tablet 27 mg PO QHS Patient Comments: TAKE ONE TABLET BY MOUTH EVERY DAY AT BEDTIME Discharge Instructions Instructions: Cough, runny nose, and the common cold Additional Instructions: Please stay well-hydrated, drinking plenty of fluids throughout the day. You may use Tylenol 650 mg and ibuprofen 600 mg alternating. Your next dose of ibuprofen may be taken at 10 PM. Your flu/COVID/RSV results should be available on the portal. Please do not go to work until you are feeling significantly better and have been fever free for 24 hours. Return to emergency care if you develop new difficulty breathing, are unable to hold down any fluids, episodes of passing out, blood in stool or vomit, or if you are very concerned and need to be rechecked again immediately. Stand Alone Forms: Work Release Discharge Data Discharge Date/Time-TO BE ENTERED AT DEPARTURE: 11/24/24 17:22 HPI General Date/Time Provider Initiated Documentation: 11/24/24 15:38 . HPI Narrative: Roz is a 24 year old female who presents to the emergency department today for evaluation of bodyaches, headache, dizziness, congestion, sore throat, and anterior chest wall discomfort starting this morning. She has had 2 episodes of diarrhea since last night. Denies recorded fevers, cough, abdominal pain, nausea/vomiting, change in bladder function. No blood in stool. No significant past medical history other than ovarian cyst; is no longer taking OCPs. No significant family history of connective tissue disorders or sudden at a young age. She has not taken any medications for pain or symptoms. Physical exam remarkable for anterior chest wall pain along sternal border and lower ribs. No crepitus or deformity. Easy work of breathing, lung sounds clear bilaterally. Normal heart sounds, mild tachycardia noted. Abdomen is soft, nondistended, nontender palpation with normoactive bowel sounds. Mild oropharyngeal erythema. Moist mucous membranes. History and presentation consistent with viral illness. As patient has reproducible pain with palpation and symptoms are in setting of viral illness all of which started today, no risk factors for PE. Low suspicion for cardiac etiology, heart score 0, does not necessitate troponins. No red flags conc erning for pneumonia based on timeline and symptoms I independently interpreted the following tests: COVID/flu [id number] negative. EKG performed, normal sinus rhythm, rate 93, normal intervals, no changes consistent with acute ischemia While in the emergency department, Roz received Toradol for muscle aches, reports resolution of bodyaches and good improvement of chest wall discomfort, now rated 5/10 (initially 8/10). Tachycardia has resolved Reviewed discharge instructions with patient, including symptomatic management and red flags indicating need for return to emergency care Related Data Home Medications ?Medication ?Instructions ?Recorded ?Confirmed drospirenone 3 mg-ethinyl 1 tab PO DAILY #84 tabs 02/06/24 11/24/24 estradiol 0.02 mg tablet magnesium gluconate 27 mg 27 mg PO QHS 11/24/24 11/24/24 magnesium (500 mg) tablet (Mag-G) sertraline 50 mg tablet 50 mg PO DAILY 11/24/24 11/24/24 vitamin B complex-folic acid 0.4 1 tab PO DAILY 11/24/24 11/24/24 mg tablet Previous Rx's ?Medication ?Instructions ?Recorded drospirenone 3 mg-ethinyl 1 tab PO DAILY #84 tabs 02/06/24 estradiol 0.02 mg tablet Allergies Allergy/AdvReac Type Severity Reaction Status Date / Time No Known Allergies Allergy Unverified 11/24/24 15:42 General Stated Complaint: Chest Pain KAREN: 3 Review of Systems Narrative: see hpi Exam Const General: cooperative, comfortable, no acute distress, well developed and well groomed Nutritional Appearance: average body habitus and well nourished Orientation: alert and oriented x3 HENMT Head: normal to inspection Ears: hearing grossly normal bilaterally General nose exam: external nose normal Face and sinus: normal facial exam Mouth: oral mucosae normal, oropharynx normal and moist mucous membranes Chest Chest: tenderness costochondral junction Resp Effort & Inspection: normal respiratory effort and able to speak in complete sentences Auscultation: clear to auscultation bilaterally Cardio Rate: tachycardic Rhythm: regular rhythm GI Inspection: normal to inspection and non-distended Palpation: soft, no guarding, not rigid and nontender Skin General skin exam: no rashes or lesions noted Course Vital Signs Vital signs: Vital Signs Temperature 37.2 C 11/24/24 15:37 Pulse 100 H 11/24/24 15:37 Respiratory Rate 16 11/24/24 15:37 Blood Pressure 138/82 11/24/24 15:37 Pulse Oximetry 98 11/24/24 15:37 Temperature 37.2 C 11/24/24 15:37 Temperature Source Oral 11/24/24 15:37 Pulse 100 H 11/24/24 15:37 Respiratory Rate 16 11/24/24 15:37 Blood Pressure 138/82 11/24/24 15:37 Blood Pressure Position Sitting 11/24/24 15:37 Pulse Oximetry 98 11/24/24 15:37 Oxygen Delivery Method Room Air 11/24/24 15:37 Oxygen Flow Rate 0 11/24/24 15:37 Pain Level 8 11/24/24 15:37 Medical Decision Making Quality:SDOH Health Related Social Needs: No Data to Display PFSH All Active Problems Viral illness (Acute) Uses oral contraceptives (Acute) Medical History Strep pharyngitis Surgical History H/O ovarian cystectomy 06/12/19. L hemorrhagic ovarian cyst. 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
[2024-11-24] MEDS: Ketorolac 30 MG/ML VIAL IM (16:12)
[2024-11-24 17:32] LABS: COVID-19 PCR Negative (Negative); Influenza A PCR Positive (Negative); Influenza B PCR Negative (Negative); RSV PCR Negative (Negative)
[2024-11-24 17:36] LABS: Source Nasopharynx
== END 2024-11-24 17:22 | disposition home or self-care (01) ==
LOC: ER 17:11
PROVIDERS: Emergency Provider Nurse Practitioner Family; PCP Nurse Practitioner Family
DX: B34.9 Viral infection, unspecified (principal); F17.290 Nicotine dependence, other tobacco product, uncomplicated
CPT/HCPCS: 87426; 87637; 93005; 96372; 99284; 93010; J1885

== ENCOUNTER 2025-05-25 13:38 | Outpatient (CLI) | payer BC, SELFPAY ==
[2025-05-25 13:59] LABS: Abs Immature Grans 0.05 10^3/uL (0.0-0.06); HCT 40.0 % (36.0-46.0); HGB 14.2 g/dL (11.2-15.7); Immature Grans % 0.5 %; MCH 32.1 pg (27.0-33.0); MCHC 35.5 % (32.0-36.0); MCV 90 fL (80-95); MPV 9.6 fL (8.0-11.0); Platelet Count 280 10^3/uL (130-400); RBC 4.43 10^6/uL (3.93-5.22); RDW 12.0 % (11.7-14.6); RDW-SD 39.7 fL; WBC 11.10 10^3/uL (4.4-10.8)
[2025-05-25 14:02] LABS: ESR 3 mm/hr (0-20)
[2025-05-25 15:19] LABS: TSH (W/Ref FT4) 1.62 uIU/mL (0.36-3.74)
[2025-05-25 15:24] LABS: C-Reactive Protein < 0.50 mg/dL (<or=0.5)
[2025-05-26 13:30] LABS: ANCA Interpretation Negative (Negative)
[2025-05-28 18:52] LABS: Myeloperoxidase Ab IgG <0.2 U (>=0.4)
== END 2025-05-25 13:39 | disposition home or self-care (01) ==
LOC: LBO 13:40
PROVIDERS: PCP Nurse Practitioner Family; Visit Provider Otolaryngology
DX: H65.22 Chronic serous otitis media, left ear (principal); H69.93 Unspecified Eustachian tube disorder, bilateral
CPT/HCPCS: 36415; 85652; 86255; 83516; 84443; 85025; 86140

== ENCOUNTER 2025-08-03 05:30 | Emergency (ER) | payer BC, SELFPAY ==
[2025-08-03] VITALS (23 sets, daily range): BP systolic 113–138; BP diastolic 58–80; PULSE 63–90; RESP 14–21; TEMP 36.4; O2SAT 92–100
--- NOTE | 2025-08-03 05:30 | RT.EKG_ITS ---
APPROVED REPORT Exam: Resting ECG Reason for Exam: Chest pain Patient Location: E HR:77 bpm ECG Measurements Heart Rate 77 AXIS [place] 154 P 47 QRSd 84 QRS 63 QT 349 T 11 QTc 396 Conclusion Sinus rhythm...normal P axis, V-rate 60- 99 Physician: no ST elevation or depression. There is an inverted T wave in acute wave in lead III, but these are unchanged from prior EKG on 11/24/2024
--- NOTE | 2025-08-03 05:45 | DI.RAD_ITS ---
Exam(s) XR PORTABLE CHEST AP EXAM: XR PORTABLE CHEST AP CLINICAL HISTORY: chest pain, bilateral TECHNIQUE: 2D digital imaging was performed. COMPARISON: No exams were available for comparison FINDINGS: LUNGS: Clear. No pleural abnormality seen. HEART: Normal size. AORTA: Normal diameter. BONES: Unremarkable for age. Soft tissues: Unremarkable. IMPRESSION: No acute findings. The preliminary [facility] report was reviewed. DATA REPOSITORY: RADIATION DOSE DELIVERED:
--- NOTE | 2025-08-03 05:52 | W.ED.GENAD ---
Discharge Plan Discharge Details Chief Complaint: Chest Pain Clinical Impression: Epigastric discomfort, Chest discomfort Primary Care Provider: Kristen Carlson ED Provider: Sandro Davies Home Meds and New Rx's Prescriptions: No Action Nexplanon 68 mg implant 1 implant subdermal ONCE Rx Instructions: as a single dose adapalene 0.3 % gel 1 applic topical QPM albuterol sulfate 90 mcg/actuation HFA aerosol inhaler 2 puff inhalation Q6H PRN azelaic acid 15 % gel 1 applic topical QAM sertraline 100 mg tablet 100 mg PO DAILY sertraline 50 mg tablet 50 mg PO DAILY Patient Comments: TAKE ONE TABLET BY MOUTH EVERY DAY vitamin B complex-folic acid 0.4 mg tablet 1 tab PO DAILY Patient Comments: TAKE ONE TABLET BY MOUTH EVERY MORNING magnesium gluconate [Mag-G] 27 mg magnesium (500 mg) tablet 27 mg PO QHS Patient Comments: TAKE ONE TABLET BY MOUTH EVERY DAY AT BEDTIME HPI General Date/Time Provider Initiated Documentation: 08/03/25 05:35. HPI Narrative: This is a pleasant 25-year-old female with a past medical history of depression, ovarian cyst, who currently takes Nexplanon for contraception, who smokes regularly for marijuana and vaping, who presents today for evaluation of abdominal and chest pain. Patient states that about 4 days ago on Sunday she developed lower abdominal cramping. She described it as sharp in nature, it came and went independently on its own. Over the next few days the pain transitioned up towards the epigastrium and then into the left and right chest, worse on the right chest than the left. She admits to nausea but denies vomiting. She describes the chest pain as a sharp aching pain in the ribs, worse with breathing. She had no shortness of breath yesterday but does admit to some mild shortness of breath currently. She denies cough, fever or chills. She denies hemoptysis. She denies any calf pain or leg swelling. She denies any personal or family history of blood clots. No falls or trauma. No other complaints at this time. She denies being on her menstrual cycle currently. She denies any atypical vaginal bleeding or discharge. No urinary complaints. Related Data Home Medications ?Medication ?Instructions ?Recorded ?Confirmed magnesium gluconate 27 mg 27 mg PO QHS 11/24/24 08/03/25 magnesium (500 mg) tablet (Mag-G) Held on 08/03/25. Instructions: Pt Stopped/Never Started sertraline 50 mg tablet 50 mg PO DAILY 11/24/24 08/03/25 Held on 08/03/25. Instructions: Pt Stopped/Never Started vitamin B complex-folic acid 0.4 1 tab PO DAILY 11/24/24 08/03/25 mg tablet Held on 08/03/25. Instructions: Pt Stopped/Never Started adapalene 0.3 % topical gel 1 applic topical QPM 01/21/25 08/03/25 Held on 08/03/25. Instructions: Pt Stopped/Never Started albuterol sulfate 90 mcg/actuation 2 puff inhalation Q6H PRN 01/21/25 08/03/25 aerosol inhaler Held on 08/03/25. Instructions: Pt Stopped/Never Started azelaic acid 15 % topical gel 1 applic topical QAM 01/21/25 08/03/25 Held on 08/03/25. Instructions: Pt Stopped/Never Started sertraline 100 mg tablet 100 mg PO DAILY 01/21/25 08/03/25 Held on 08/03/25. Instructions: Pt Stopped/Never Started etonogestrel 68 mg subdermal 1 implant subdermal ONCE 04/28/25 08/03/25 implant (Nexplanon) Allergies Allergy/AdvReac Type Severity Reaction Status Date / Time No Known Allergies Allergy Unverified 08/03/25 06:10 General Stated Complaint: Chest Pain KAREN: 3 Exam Narrative Exam Narrative: 1.Const: Well-nourished, Well-developed, appearing stated age 2.Eyes: PERRL, no conjunctival injection, and symmetrical lids. 3.ENT: Atraumatic external nose and ears. Moist MM. Neck: Symmetric, trachea midline, No thyromegaly. 4.CVS: +S1/S2, Peripheral pulses 2+ and equal in all extremities. Brisk capillary refill in all extremities. 5.RESP: Unlabored respiratory effort. Clear to auscultation bilaterally. No wheezes rales or rhonchi. Mild tenderness on palpation of the right and left ribs anteriorly and laterally. 6.GI: Soft, nondistended. Mild tenderness in the epigastric region. No guarding or rebound. Minimal achiness on palpation in the low pelvis. 7.MSK: Normocephalic/Atraumatic, Extremities w/o deformity or ttp No cyanosis or clubbing, Normal movement of all extremities 8.Skin: Warm, Dry. No rashes or lesions. No evidence of shingles 9.Neuro: fund development manager II-XII grossly intact. Sensation grossly intact, no focal neurologic deficits. 10.Psych: (AAO) x3. Appropriate mood and affect Course Vital Signs Vital signs: Vital Signs Pulse 90 08/03/25 05:33 Respiratory Rate 14 08/03/25 05:33 Blood Pressure 138/80 08/03/25 05:33 Pulse Oximetry 96 08/03/25 05:33 Pulse 90 08/03/25 05:33 Respiratory Rate 14 08/03/25 05:33 Blood Pressure 138/80 08/03/25 05:33 Blood Pressure Position Sitting 08/03/25 05:33 Pulse Oximetry 96 08/03/25 05:33 Oxygen Delivery Method Room Air 08/03/25 05:33 Oxygen Flow Rate 0 08/03/25 05:33 Pain Level 8 08/03/25 05:39 Medical Decision Making This is a pleasant 25-year-old female with a past medical history of depression, ovarian cyst, who currently takes Nexplanon for contraception, who smokes regularly for marijuana and vaping, who presents today for evaluation of abdominal and chest pain. Patient states that about 4 days ago on Sunday she developed lower abdominal cramping. She described it as sharp in nature, it came and went independently on its own. Over the next few days the pain transitioned up towards the epigastrium and then into the left and right chest, worse on the right chest than the left. She admits to nausea but denies vomiting. She describes the chest pain as a sharp aching pain in the ribs, worse with breathing. She had no shortness of breath yesterday but does admit to some mild shortness of breath currently. She denies cough, fever or chills. She denies hemoptysis. She denies any calf pain or leg swelling. She denies any personal or family history of blood clots. No falls or trauma. No other complaints at this time. She denies being on her menstrual cycle currently. She denies any atypical vaginal bleeding or discharge. No urinary complaints. Physical exam demonstrates a well appearing female, mild reproducible tenderness on the anterior and lateral ribs, mild epigastric tenderness on palpation and mild lower pelvic tenderness. Differential for the cause of her broad symptomatology also remains broad, but includes ovarian cyst, pancreatitis gastric ulcer less likely PE, enteritis and gastroenteritis is of concern. We will give Toradol, gently rehydrate, check for these etiologies, monitor closely and reassess. EKG demonstrates no ST elevation or depression. There is an inverted T wave in acute wave in lead III, but these are unchanged from prior EKG on 11/24/2024 7:01 AM Patient's abdominal pain has notably improved after the Toradol. Continued exam shows no signs of an acute surgical abdomen whatsoever. No evidence historically or on exam to suggest ovarian torsion. No focal right lower quadrant tenderness at McBurney's point, negative Yancey sign. No evidence to suggest an acute appendicitis at this time. However understanding her initial abdominal symptoms, I did discuss with her and her mother who is at bedside potential CT imaging. I did discuss imaging options for the patient and at this time through notable discussion, weighing the risks and benefits, and a shared decision making process the patient has declined imaging at this time. Patient is of an appropriate age to make decisions. The patient is of sound mind, appears clinically sober, and has capacity to make decisions by my clinical exam. We will hold off on imaging of the abdomen. Laboratory workup shows no white count or bandemia. Minimal lymphopenia. Electrolytes stable renal function and lipase stable. Troponin initial is normal. Still pending UA. Chest x-ray negative for acute process per radiology. D-dimer normal. With the improvement of her abdominal pain, but the persistence of her mild chest discomfort and her epigastric tenderness, we will add a GI cocktail and Carafate. Will recommend holding until repeat troponin has returned, UA has returned, and reassessment after meds. FINDINGS: Lungs: No focal consolidation seen. Pleural spaces: No large pleural effusion seen. Heart/Mediastinum: No cardiomegaly. Bones/joints: No acute abnormality. IMPRESSION: No acute findings to explain reported symptoms. Thank you for allowing us to participate in the care of your patient. Dictated and Authenticated by: Lauren Swain MD 08/03/2025 6:23 AM Eastern Time ([place] & [place]) PFSH All Active Problems (Updated 08/03/25 @ 07:06 by Sandro R Keke, DO) Chest discomfort (Acute) Epigastric discomfort (Acute) Conductive hearing loss, bilateral (Acute) Chronic serous otitis media, bilateral (Acute) Dysfunction of both eustachian tubes (Acute) Chronic serous otitis media of left ear (Acute) Acne (Acute) Depressive disorder (Chronic) Hearing loss (Acute) Medical History Acne vulgaris Snoring Social problem not due to mental disorder Irregular bowel habits Presence of subdermal contraceptive implant (~01/2025) Inserted at [facility] Strep pharyngitis Surgical History History of tonsillectomy and adenoidectomy H/O ovarian cystectomy 06/12/19. L hemorrhagic ovarian cyst. Laparoscopic ovarian cystectomy Family History Maternal Grandfather AA (aortic aneurysm) Paternal Grandfather Cancer Social History Smoking/Tobacco Use Status: Current every day Tobacco Type: e-cigarettes Quit status: considering quitting Smoking risk assessment performed?: Yes Alcohol Intake: current Alcohol Intake frequency: a few times a month Drug use: Occasionally Substance use type: marijuana Details: Pt states she vapes daily 11/24/24 Housing: house Communication Needs: None Education Level: high school Details: entering [employer]lette yr at [employer]. 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
[2025-08-03] MEDS: Ketorolac 15 MG/ML VIAL IVP (06:00)
[2025-08-03 06:01] LABS: Abs Immature Grans 0.02 10^3/uL (0.0-0.06); HCT 39.1 % (36.0-46.0); HGB 13.7 g/dL (11.2-15.7); Immature Grans % 0.3 %; MCH 31.3 pg (27.0-33.0); MCHC 35.0 % (32.0-36.0); MCV 89 fL (80-95); MPV 9.3 fL (8.0-11.0); Platelet Count 231 10^3/uL (130-400); RBC 4.38 10^6/uL (3.93-5.22); RDW 11.7 % (11.7-14.6); RDW-SD 37.7 fL; WBC 6.29 10^3/uL (4.4-10.8)
--- NOTE | 2025-08-03 06:23 | DI.[facility]_ITS ---
PROCEDURE INFORMATION: Exam: XR Chest Exam date and time: 08/03/2025 6:01 AM Age: 25 years old Clinical indication: Chest pain, bilateral TECHNIQUE: Imaging protocol: Radiologic exam of the chest. Views: 1 view. COMPARISON: CR XR CHEST 2V PA LATERAL 12/24/2023 2:24 PM FINDINGS: Lungs: No focal consolidation seen. Pleural spaces: No large pleural effusion seen. Heart/Mediastinum: No cardiomegaly. Bones/joints: No acute abnormality. IMPRESSION: No acute findings to explain reported symptoms. Dictated and Authenticated by: Lauren Swain MD. Orderin Keke Jo MD
[2025-08-03 06:26] LABS: ALT 22 U/L (14-59); AST 13 U/L (15-37); Albumin 4.2 g/dL (3.4-5.0); Alkaline Phosphatase 53 U/L (46-116); Anion Gap 9.3 mmol/L (3-11); BUN 8 mg/dL (7-18); Bilirubin, Total 0.4 mg/dL (0.2-1.0); CO2 27.7 mmol/L (21.0-32.0); Calcium 9.0 mg/dL (8.5-10.1); Chloride 103 mmol/L (98-107); Estimated GFR 92.12 (mL/min/1.73m2); Glucose 98 mg/dL (74-106); Lipase 23 U/L (<78); Potassium 3.4 mmol/L (3.5-5.1); Sodium 140 mmol/L (136-145); Total Protein 7.8 g/dL (6.4-8.2)
[2025-08-03 06:31] LABS: D-Dimer 416 ng/mlFEU (<500); Troponin I < 4 ng/L (<or=51)
[2025-08-03] MEDS: Sucralfate 1 GM TAB PO (07:18)
[2025-08-03] MEDS: Mylanta Suspension 30 ML CUP PO (07:18)
[2025-08-03] MEDS: Normal Saline 1,000 ML 1000 ML IV (07:19)
[2025-08-03 07:32] LABS: Troponin I < 4 ng/L (<or=51)
--- NOTE | 2025-08-03 07:37 | ED.PROG_ITS ---
Date of service: 08/03/25 Time of Service: 07:37 Medical Decision Making I received signout on this 25-year-old female with chest pain among other symptoms. She felt improved. She has had a reevaluation. She was pending a urinalysis which was reassuring against UTI. I met with the patient. She continues to feel improved. We discussed ED return for any worsening pain nausea or vomiting that did not stop or any other concerns. Discharge Plan Disposition Patient Disposition: Home Condition: Good Discharge Details Clinical Impression: Epigastric discomfort, Chest discomfort Primary Care Provider: Kristen Carlson ED Provider: Santos Ariza Home Meds and New Rx's Prescriptions: New sucralfate [Carafate] 1 gram tablet 1 g PO BID Qty: 60 0RF pantoprazole [Protonix] 20 mg tablet,delayed release (DR/EC) 20 mg PO DAILY Qty: 60 0RF Continued Nexplanon 68 mg implant 1 implant subdermal ONCE Rx Instructions: as a single dose adapalene 0.3 % gel 1 applic topical QPM albuterol sulfate 90 mcg/actuation HFA aerosol inhaler 2 puff inhalation Q6H PRN azelaic acid 15 % gel 1 applic topical QAM sertraline 100 mg tablet 100 mg PO DAILY sertraline 50 mg tablet 50 mg PO DAILY Patient Comments: TAKE ONE TABLET BY MOUTH EVERY DAY vitamin B complex-folic acid 0.4 mg tablet 1 tab PO DAILY Patient Comments: TAKE ONE TABLET BY MOUTH EVERY MORNING magnesium gluconate [Mag-G] 27 mg magnesium (500 mg) tablet 27 mg PO QHS Patient Comments: TAKE ONE TABLET BY MOUTH EVERY DAY AT BEDTIME Discharge Instructions Instructions: Gastritis Additional Instructions: At this time your test have returned reassuring. There is no signs of heart attack, pancreatitis, popped lung, blood clot or other significant abnormality. I am concerned that you do have potential irritation in your stomach and your esophagus. Please take the Carafate and Protonix as prescribed. Please follow- up closely with your primary care provider for assessment. Please avoid spicy foods, tomato-based products or mint based products. If you notice any worsening of your symptoms, or any new symptoms such as vomiting, diarrhea, fever, chills, shortness of breath, chest pain, numbness, weakness, or fainting , please return immediately to the emergency department for reevaluation. Please follow up with your primary care provider as soon as possible for reassessment and reevaluation. As always, it was a pleasure participating in your medical care today. Referrals: Kristen Carlson [Primary Care Provider, Medicine] Discharge Data Discharge Date/Time-TO BE ENTERED AT DEPARTURE: 08/03/25 08:05
[2025-08-03 07:39] LABS: Glucose Negative (Negative)
[2025-08-03 07:47] LABS: C & S Indicated? No; RBC Negative HPF (0-2); WBC Negative HPF (0-5)
== END 2025-08-03 08:05 | disposition home or self-care (01) ==
PROVIDERS: Student in an Organized Health Care Education/Training Program; Emergency Provider Emergency Medicine; PCP Nurse Practitioner Family
DX: R07.89 Other chest pain (principal); R10.13 Epigastric pain
CPT/HCPCS: 00123; 80053; 83690; 93005; 96361; 96374; 99284; 71045; 81003; 81015; 84484; 85025; 85379; 93010; J1885